=== PATIENT | female | born 1970 | race Two or more races ===

== ENCOUNTER 2024-06-09 09:49 | Outpatient (RCR) | payer MEDICAID, SELFPAY | END 2024-06-30 23:59 | disposition home or self-care (01) | LOC: SCTC 09:49 | PROVIDERS: PCP Physician Assistant Medical; Referring Provider Physician Assistant Medical; Visit Provider Nurse Practitioner Family | DX: D49.0 Neoplasm of unspecified behavior of digestive system (principal); I10 Essential (primary) hypertension; R19.7 Diarrhea, unspecified | CPT/HCPCS: 99212; G0463 ==

== ENCOUNTER 2024-07-24 21:16 | Emergency (ER) | payer MEDICAID, SELFPAY ==
[2024-07-24 21:17] VITALS: BMI 26.4
[2024-07-24 21:30] VITALS: BP 141/86; PULSE 83; RESP 16; TEMP 36.8; O2SAT 99
--- NOTE | 2024-07-24 21:33 | XR_ITS ---
Examination: CT abdomen and pelvis without contrast. Coronal 3-D reconstructions. Sagittal 2-D reconstructions. Date and time of exam:July 24, 1999 2510 0 8:00 PM INDICATIONS: Onset of abdominal pain beginning 2 days ago COMPARISON: January 01, 2022 CTDI: vol (mGy): 7.61 DLP: (mGycm): 408 Technique: Axial images of the abdomen have been obtained, 3 mm slice thickness Intravenous contrast material has not been administered. Low dose protocols were performed. One or more of the following dose reduction techniques were used; automated exposure control, adjustment of the mA and/or KV according to patient size, use of iterative reconstruction technique. Findings: No focal liver or splenic lesions Absent gallbladder No pancreatic or adrenal mass. No renal or ureteral calculi, no hydronephrosis Aorta normal size And absent appendix No bowel obstruction or diverticulitis Contracted urinary bladder with urinary bladder wall thickening Moderate osteopenia IMPRESSION: No renal or ureteral calculi, no hydronephrosis Absent. No bowel obstruction or diverticulitis
--- NOTE | 2024-07-24 21:34 | PD.EDRME ---
Rapid Medical Screening Exam RME Arrival date/time: 07/24/24 21:16 54-year-old female with no known medical history presents to the emergency room with a chief complaint of 8 out of 10 epigastric pain that radiates down to her lower abdominal area x 2 days I have greeted and performed a focused initial assessment of this patient. A comprehensive ED assessment and evaluation of the patient, analysis of all test results, and completion of the medical decision making process will be conducted by additional ED providers. Chief Complaint: Abdominal Pain Vital signs: Vital Signs Temperature 98.2 F 07/24/24 21:30 Pulse Rate 83 07/24/24 21:30 Respiratory Rate 16 07/24/24 21:30 Blood Pressure 141/86 H 07/24/24 21:30 Pulse Oximetry (%) 99 07/24/24 21:30 Oxygen Delivery Method Room Air 07/24/24 21:30 Vital signs reviewed by provider: Yes
[2024-07-24] MEDS: MG HYD/AL HYD/SIME (Maalox Reg) SUSP 30 ML UDC PO (21:39)
[2024-07-24 22:23] LABS: Alanine Aminotransferase 29 U/L (10-49); Albumin, Serum 4.9 gm/dL (3.5-5.0); Albumin/Globulin Ratio 1.6 (1.2-2.2); Alkaline Phosphatase 131 U/L (46-116); Anion Gap 9 (7-16); Aspartate Amino Transferase 30 U/L (0-34); BUN/Creatinine Ratio 13 Ratio (12-20); Bilirubin,Total 0.3 mg/dL (0.3-1.2); Blood Urea Nitrogen 12 mg/dL (9-23); Calcium 10.5 mg/dL (8.3-10.6); Calcium (Corrected) 10.5 mg/dL (8.5-10.1); Carbon Dioxide 27.7 mMol/L (20.0-31.0); Chloride 102 mMol/L (98-107); Creatinine (Component) 0.9 mg/dL (0.6-1.3); Globulin 3.1 gm/dL (2.3-3.5); Glucose 119 mg/dL (74-106); Lipase 36 U/L (12-53); Osmolality,Calculated 278 (275-295); Potassium 3.8 mMol/L (3.4-5.1); Sodium 139 mMol/L (136-145); eGFR > 60 See Note
[2024-07-24 22:25] LABS: Basophils % (Auto) 0 % (0-2.5); Eosinophils # (Auto) 0.1 Thou/mm3 (0.0-0.5); Eosinophils % (Auto) 1 % (0-10); Hematocrit 40.1 % (36.0-46.0); Hemoglobin 14.2 g/dL (12.0-16.0); Immature Granulocytes % (Auto) 0 % (0-0); Immature Granulocytes Auto 0.03 Thou/mm3 (0.00-0.00); Lymphocytes % (Auto) 33 % (10-50); Mean Corpuscular HGB Conc 35.4 g/dl (31.0-37.0); Mean Corpuscular Hemoglobin 32.2 pg (25.0-35.0); Mean Corpuscular Volume 91 fL (80-100); Monocytes # (Auto) 0.5 Thou/mm3 (0.0-0.8); Monocytes % (Auto) 6 % (0-12); Neutrophils # (Auto) 5.5 Thou/mm3 (1.8-7.7); Neutrophils % (Auto) 60 % (37-80); Nucleated Red Blood Cell % 0 /100 WBC (0); Platelet Count 198 Thou/mm3 (140-440); RDW Standard Deviation 45.2 fL (36.4-46.3); Red Blood Count 4.41 Miln/mm3 (4.00-5.20); White Blood Count 9.1 Thou/mm3 (3.6-11.0)
[2024-07-24 23:10] LABS: Collection Type, Urine Clean Catch
[2024-07-24 23:25] LABS: Bilirubin,Urine Negative (Negative); Blood,Urine Negative (Negative); Clarity,Urine Clear (Clear/Hazy); Color,Urine Colorless (Lt Yel-Yel); Glucose, Urine Negative (Negative); Ketones,Urine Negative (Negative); Leukocyte Esterase,Urine Positive (Negative); Nitrite,Urine Negative (Negative); PH,Urine 6.5 (5.0-7.0); Protein,Urine Negative (Neg - Trace); RBC,Urine 1 /hpf (0-3); Squamous Epithelial Cell,Urine 4 /hpf (0-5); Urobilinogen,Urine Negative mg/dL (0.0-1.0); WBC,Urine 5 /hpf (0-5)
--- NOTE | 2024-07-25 00:14 | PD.EDABDPN ---
ED Abdominal Pain RME/HPI General Chief Complaint: Abdominal Pain Stated complaint: abdominal pain x 1 day, epigastric Time seen by provider: 07/25/24 00:11 Arrival date/time: 07/24/24 21:16 54-year-old female with no known medical history presents to the emergency room with a chief complaint of 8 out of 10 epigastric pain that radiates down to her lower abdominal area x 2 days Source: patient Mode of arrival: ambulatory Limitations: no limitations RME / HPI RME / HPI narrative: 07/24/24 21:16 54-year-old female with no known medical history presents to the emergency room with a chief complaint of 8 out of 10 epigastric pain that radiates down to her lower abdominal area x 2 days I have greeted and performed a focused initial assessment of this patient. A comprehensive ED assessment and evaluation of the patient, analysis of all test results, and completion of the medical decision making process will be conducted by additional ED providers. Related Data Previous Rx's ?Medication ?Instructions ?Recorded docusate sodium 100 mg capsule 100 mg PO BID #40 caps 01/02/22 (Colace) hydrocodone 5 mg-acetaminophen 325 1 tab PO Q6H PRN pain (scale score 01/02/22 mg tablet 7-10) #20 tabs ibuprofen 600 mg tablet 600 mg PO Q8H PRN pain (scale 01/02/22 score 4-6) #15 tabs furosemide 20 mg tablet (Lasix) 20 mg PO QAM #3 tabs 02/17/23 meclizine 25 mg tablet 25 mg PO QDAY PRN dizziness #10 02/17/23 tabs potassium chloride 20 mEq 20 meq PO QDAY #6 tabs 02/17/23 tablet,extended release omeprazole 20 mg capsule,delayed 20 mg PO QDAY #14 caps 07/25/24 release Allergies Allergy/AdvReac Type Severity Reaction Status Date / Time No Known Allergies Allergy Verified 12/06/23 18:05 Review of Systems Review of Systems Systems Reviewed: All systems reviewed, normal except as documented Constitutional Constitutional: Reports system reviewed and no additional complaints, except as documented, Denies fatigue, Denies fever(s), Denies headache(s) and Denies weakness Eyes Eyes: Reports system reviewed and no additional complaints, except as documented, Denies blurry vision and Denies change in vision ENT Ears, Nose, Mouth, and Throat: Reports system reviewed and no additional complaints, except as documented, Denies otalgia, Denies headache(s), Denies nasal congestion, Denies throat swelling and Denies vertigo Cardiovascular Cardiovascular: Reports system reviewed and no additional complaints, except as documented, Denies chest pain, Denies dyspnea and Denies dyspnea on exertion Respiratory Respiratory: Reports system reviewed and no additional complaints, except as documented, Denies chest congestion, Denies cough, Denies dyspnea, Denies dyspnea on exertion and Denies wheezing Gastrointestinal Gastrointestinal: Reports system reviewed and no additional complaints, except as documented, Reports abdominal pain, Reports cramping, Reports dyspepsia, Reports early satiety, Reports excessive flatus, Reports heartburn, Reports nausea and Denies vomiting Genitourinary Genitourinary: Reports system reviewed and no additional complaints, except as documented Musculoskeletal Musculoskeletal: Reports system reviewed and no additional complaints, except as documented and Denies back pain Integumentary/Breasts Skin/Breast: Reports system reviewed and no additional complaints, except as documented and Denies wounds Neurologic Neurologic: Reports system reviewed and no additional complaints, except as documented, Denies confusion, Denies headache(s), Denies lack of coordination, Denies vertigo and Denies weakness Psychiatric Psychiatric: Reports system reviewed and no additional complaints, except as documented, Denies anxiety, Denies confusion, Denies depression, Denies paranoia, Denies suicidal ideation and Denies tactile hallucinations Endocrine Endocrine: Reports system reviewed and no additional complaints, except as documented and Denies fatigue Hematologic/Lymphatic Hematologic/Lymphatic: Reports system reviewed and no additional complaints, except as documented and Denies lymphadenopathy Allergic/Immunologic Allergic/Immunologic: Reports system reviewed and no additional complaints, except as documented, Denies throat swelling, Denies urticaria and Denies wheezing Past Medical History Past Medical History NEUROLOGIC: Negative Neurological Disorders, Cerebrovascular Accident, Transient Ischemic Attacks (TIA), Dementia, Alzheimer's Disease, Parkinson's Disease, Brain Tumor, Meningitis, Seizures, Epilepsy, Multiple Sclerosis, Cerebral Palsy, Amyotrophic Lateral Sclerosis (ALS/Ronda Gehrig's), Guillain-Burgess Syndrome, Spina Bifida, Paralysis, Peripheral Neuropathy, Galdamez's Palsy, Subdural Hematoma, Migraine, Head Trauma, Spinal Cord Injury or Traumatic Brain Injury CARDIAC: Negative Cardiac Disorders, Myocardial Infarction, Cardiac Arrhythmia, Atrial Fibrillation, Angina, Heart Murmur, Coronary Artery Disease, Atherosclerotic Heart Disease, Peripheral Vascular Disease, Hypercholesterolemia, Aneurysm, Congestive Heart Failure, Congenital Heart Disease, Valvular Heart Disease, Rheumatic Fever, Cardiomyopathy, Edema, Pericarditis, Cellulitis, Deep Vein Thrombosis, Hypertension, Hypotension or Varicose Veins RESPIRATORY: Negative Chronic Obstructive Pulmonary Disease (COPD), Asthma, Bronchitis, Emphysema, Pneumonia, Pulmonary Fibrosis, Cystic Fibrosis, Tuberculosis, Pulmonary Embolism, Pulmonary Edema or Sleep Apnea GASTROINTESTINAL: Positive Gastrointestinal Disorders and Gall Bladder Disease (CHOLECYSTECTOMY 2001, GALLSTONE PANCREATITIS 2018.); Negative Hepatitis, Cirrhosis, Pancreatitis, Celiac Disease, Gastrointestinal Bleed, Esophageal Varices, Shafer's Esophagus, Colitis, Ulcerative Colitis, Diverticulitis, Diverticulosis, Ulcer, Colorectal Cancer, Irritable Bowel, Crohn's Disease, Obstructive Bowel, Hiatal Hernia, Hemorrhoids, Gastroesophageal Reflux Disease or Obesity GENITOURINARY: Negative Genitourinary Disorders, Renal Disease, Kidney Stones, Polycystic Kidney Disease, Neurogenic Bladder, Inguinal Hernia or Dialysis REPRODUCTIVE: Positive Previous Pregnancies ( X5); Negative Breast Cancer, Endometriosis, Genital Herpes, Gonorrhea, Pelvic Inflammatory Disease, Syphilis or Uterine Prolapse MUSCULOSKELETAL: Negative Musculoskeletal Disorders, Muscular Dystrophy, Myasthenia Gravis, Marfan's Syndrome, Bone Cancer, Arthritis, Rheumatoid Arthritis, Osteoporosis, Degenerative Disk Disease, Gout, Scoliosis, Carpal Tunnel Syndrome, Fibromyalgia, Fractures, Degenerative Joint Disease, Osteomyelitis or Poliovirus ENT: Negative Cataracts, Glaucoma, Blind, Retinal Detachment, Macular Degeneration, Ear Infection, Deafness, Head Trauma or Eye Prosthesis ENDOCRINE: Negative Endocrine Disorders, Diabetes Mellitus Type 1, Diabetes Mellitus Type 2, Hypoglycemia, Mitchel's Syndrome, Schleswig's Disease, Hyperthyroidism, Hypothyroidism, Parathyroid Disease, Pituitary Disease, Systemic Lupus Erythematosus, Syndrome of Inappropriate Antidiuretic Hormone (SIADH), Adrenal Disease or Graves' Disease HEMATOLOGIC: Negative Blood Disorders, Anemia, Leukemia, Hemophilia, Thalassemia, Sickle Cell Disease or Clotting Problems PSYCHO/SOCIAL: Negative Psychiatric Problems, Schizophrenia, Recreational Drug Use, Bipolar Disorder, Depression, Anxiety, Behavior Problems, Self-Mutilation, Attention Deficit Disorder, Attention Deficit Hyperactivity Disorder, Depression, Post Traumatic Stress Disorder or Eating Disorder OTHER HISTORY: Positive Hospitalization (2001,2019); Negative Autoimmune Disease, Down Syndrome, Autism, Developmental Delay, Shingles, Falls, Blood Transfusions, Blood Transfusion Reaction, Anesthesia Reactions, Organ Transplant, Chemotherapy, Radiation Therapy, Hyperbaric Therapy, MRSA, VRSA, Vancomycin-Resistant Enterococci, Human Immunodeficiency Virus (HIV), Chicken Pox, Measles, Mumps, Rubella (Ukrainian Measles), Pertussis, Clostridium Difficile, Cancer, Breast Cancer, Cervical Cancer, Colorectal Cancer, Lung Cancer or Ovarian Cancer Family History FAMILY HISTORY: Negative Family Psychiatric Problems, Family Respiratory Disorders, Family Cardiac Disorders, Family Gastrointestinal Problems, Family Cancer, Family Surgery or Family Anesthesia Reaction Surgical History SURGICAL: Positive Abdominal Surgery and Section (X5); Negative Cardiac Surgery, Open Heart Surgery, Coronary Artery Bypass Graft, Valve Replacement, Vascular Surgery, Coronary Stent, Cardiac Catheterization, Pacemaker, Angiogram, Auto Implanted Cardiovert Defib, Carotid Endarterectomy, Endocrine Surgery, Thyroidectomy, Ear Surgery, Tympanostomy Tube, Eye Surgery, Nose Surgery, Oral Surgery, Tonsillectomy, Adenoidectomy, Cochlear Implant, Corneal Transplant, Throat Surgery, Tracheostomy, Gastric Bypass Surgery, Gastrostomy, Bowel Surgery, Joint Replacement, Amputation, Open Reduction Internal Fixation, Arthroscopy, Neurologic Surgery, Brain Shunt, Mastectomy, Lumpectomy, Hysterectomy, Tubal Ligation or Organ Transplant Social History SMOKING STATUS: Never smoker SUBSTANCE USE: does not use ED Exam General Limitations: Present no limitations General appearance: Present alert and in no apparent distress Head Head exam: Present atraumatic Eye Eye exam: Present normal appearance, PERRL and EOMI ENT ENT exam: Present normal exam, normal oropharynx and mucous membranes moist Neck Neck exam: Present normal inspection, full ROM and trachea midline Chest Chest inspection: Present normal inspection and symmetric chest wall rise Respiratory Respiratory exam: Present normal lung sounds bilaterally Cardiovascular Cardiovascular exam: Present regular rate, normal rhythm and normal heart sounds Abdominal Exam Abdominal exam: Present soft, tenderness and normal bowel sounds Abdominal tenderness: Present epigastrium and moderate; Absent RLQ or LLQ Extremities Exam Extremities exam: Present normal inspection and full ROM Back Exam Back exam: Present normal inspection and full ROM Neurological Exam Neurological exam: Present alert, oriented X3 and CN II-XII intact Psychiatric Psychiatric exam: Present normal affect and normal mood Skin Skin exam: Present warm, dry, intact and normal color Course Quality Measures none Orders Category Date Time Status CT abdomen pelvis wo con Stat Exams 07/24/24 21:33 Completed CBC Stat Lab 07/24/24 21:47 Completed CMP [Comprehensive Metabolic Panel] Stat Lab 07/24/24 21:47 Completed Lipase Stat Lab 07/24/24 21:47 Completed UA [Urinalysis] Stat Lab 07/24/24 23:04 Completed Urine Culture Stat Lab 07/24/24 23:04 Received mg Hyd/Al Hyd/Beth Susp [Maalox Susp] Med 07/24/24 21:33 Discontinued 30 ml PO X1 ONE Vital Signs Vital signs: Vital Signs Temperature 98.2 F 07/24/24 21:30 Pulse Rate 83 07/24/24 21:30 Respiratory Rate 16 07/24/24 21:30 Blood Pressure 141/86 H 07/24/24 21:30 Pulse Oximetry (%) 99 07/24/24 21:30 Oxygen Delivery Method Room Air 07/24/24 21:30 O2 saturation 99% within normal limits Abdominal Pain MDM MDM Narrative MDM Narrative:: 54-year-old female with no known medical history presents to the emergency room with a chief complaint of 8 out of 10 epigastric pain that radiates down to her lower abdominal area x 2 days. The patient is hemodynamically stable and nontoxic-appearing CT abdomen and pelvis was completed and was negative for any acute findings, CBC CMP UA were all negative for any acute findings. Patient has no gallbladder and no appendix. Patient was reevaluated and states she has significant improvement in her pain with Maalox Patient was discharged and educated to follow-up with primary care provider and return to the emergency room for any evidence of worsening signs or symptoms Patient data External records reviewed:: [facility] previous records Clinical information provided by:: patient Social determinants that could affect healthcare access:: none Patient has the following chronic illnesses:: No chronic illness How is presenting disease/condition affected by chronic disease/condition?: no chronic disease Evaluation data The following diagnostics were reviewed and interpreted by me:: lab results and radiology exam(s) Lab and/or radiology exams considered but not ordered:: Labs and radiology exams considered and ordered Interpretation Summary: CT abdomen and pelvis-Findings: No focal liver or splenic lesions Absent gallbladder No pancreatic or adrenal mass. No renal or ureteral calculi, no hydronephrosis Aorta normal size And absent appendix No bowel obstruction or diverticulitis Contracted urinary bladder with urinary bladder wall thickening Moderate osteopenia IMPRESSION: No renal or ureteral calculi, no hydronephrosis Absent. No bowel obstruction or diverticulitis Medications / Prescriptions Medications or Prescriptions considered but not ordered:: Medication given Medication administrations:: Medication Administration History Discontinued Medications Al Hydrox/Mg Hydrox/Simethicone (Mg Hyd/Al Hyd/Beth (Maalox Reg) Susp 30 Ml Udc) 30 ml PO X1 ONE Stop: 07/24/24 21:34 Last Admin: 07/24/24 21:39 Dose: 30 ml Documented By: CVL Medication given Consultations Consultation(s) initiated? (list below): No Diagnosis Differential diagnosis abdominal pain: abdominal pain, diverticulitis, gastroenteritis and other (Gastritis) Most likely diagnosis given after review of the tests above:: Gastritis Admission Indicated Admission indicated?: not indicated Admission Request Was there a request for admission?: No Disposition Plan Disposition Plan: Discharge Discharge Attestation Discharge Attestation: The patient and all family members were given an opportunity to ask questions and understood the discharge instructions. Discharge instructions specifically effects, indications for sooner follow up or return to the emergency department, and the expected course of current diagnosis. Patient condition: Stable Discharge Plan Plan Patient Disposition: HOME (Self Care) Disposition Comment: Stable Prescriptions/Referrals Prescriptions/Med Rec: New omeprazole 20 mg capsule,delayed release(DR/EC) 20 mg PO QDAY Qty: 14 0RF No Action hydrocodone-acetaminophen 5-325 mg tablet 1 tab PO Q6H MDD 4 PRN (Reason: pain (scale score 7-10)) Qty: 20 0RF docusate sodium [Colace] 100 mg capsule 100 mg PO BID Qty: 40 0RF ibuprofen 600 mg tablet 600 mg PO Q8H PRN (Reason: pain (scale score 4-6)) Qty: 15 0RF meclizine 25 mg tablet 25 mg PO QDAY PRN (Reason: dizziness) Qty: 10 0RF potassium chloride 20 mEq tablet extended release 20 meq PO QDAY Qty: 6 0RF furosemide [Lasix] 20 mg tablet 20 mg PO QAM Qty: 3 0RF Referrals: Tuyet Trinidad PA-C [Primary Care Provider] - In 1 week Problem List Clinical Impression: Gastritis Patient/Caregiver Discharge Instructions Education Materials: Treating Gastritis, Understanding Gastritis, ED Gastritis (Adult) Additional Instructions: Shawn un seguimiento con gordillo proveedor de atenci?n primaria en las pr?ximas 24 a 48 horas. Se complet? la tomograf?a computarizada de gordillo abdomen y pelvis y fue negativa para cualquier hallazgo deepak. Gordillo an?lisis de macie y an?lisis de orina fueron negativos para cualquier hallazgo deepak. Si hay evidencia de signos o s?ntomas que empeoran, regrese a la martínez de emergencias de inmediato. Print Language: Greenlandic Stand Alone Forms: Cheryl Award Info., Patient Portal Info Letter PA/EMPLOYMENT AND CLAIMS AIDE Supervising Physician PA/EMPLOYMENT AND CLAIMS AIDE Supervising Physician: Dr. Brooks
[2024-07-25 00:15] VITALS: BP 128/76; PULSE 80; RESP 18; TEMP 36.7; O2SAT 98
== END 2024-07-25 00:16 | disposition home or self-care (01) ==
PROVIDERS: Nurse Practitioner Family; Emergency Provider Emergency Medicine; PCP Physician Assistant Medical
DX: K29.70 Gastritis, unspecified, without bleeding (principal)
CPT/HCPCS: 36415; 74176; 80053; 81001; 83690; 85025; 87086; 99284; A9270

== ENCOUNTER 2024-12-24 07:45 | Outpatient (RCR) | payer MEDICAID, SELFPAY ==
--- NOTE | 2024-12-24 08:09 | PTNOTE_ITS ---
PT OP Initial Eval Patient Information Outpatient Physical Therapy Treatment Date: 12/24/24 Visit Reasons: Left rotator cuff repair Medical Diagnosis: Z98.890 Treatment Dx #1: Dec L shoulder ROM Treatment Dx #2: L shoulder pain Start of Care: 12/24/24 Date of Onset: 09/30/24 Smoking Status Smoking Status: Never smoker Initial Assessment Subjective: Pt is 54 yr old mohawk speaking female s/p L RCR and SAD reports tightness and difficulty reaching up. Pt reports pain worse at night that limits HH chores and lifting things. PMH: HTN, high cholesterol Pt goal: to reach up without pain Objective: L shoulder ArOM: PROM: FF: 65 deg 74 deg with pain Abd: 50 deg 60 deg with pain ER: 20 deg HBB: L iliac crest Strength: NT but estimated to be 3-/5 in all planes Assessment: Pt presents with very limited ROM of L shoulder consistent with adhesive capsulitis s/p L RCR. Pt requires skilled therapy to meet goals and has poor/fair rehab potential. Pt may benefit from KOURTNEY of L shoulder and static progressive ROM device. Short Term and Sales Promotion Officer Goals 1. Ind with HEP ? 2. Improved AROM of L shoulder to at least 135 deg FF, 125 deg abduction and 80 deg ? ER ? 3. Improved HBB ROM to L3 ? 4. Pt will reach OH x10 with <=4/10 pain Treatment Plan ? 1. Manual therapy ? 2. Therex ? 3. Modalities as indicated, moist heat, ice, estim Frequency and Duration: 2x a week for 18 visits plus the evaluation. We will need more auth after 12 Certification Dates: 12/24/24 to 03/24/25 Procedure Charges OP PT Eval Mod Complex 30 minutes: Yes
== END 2024-12-28 23:59 | disposition home or self-care (01) ==
LOC: CPTX 07:45
PROVIDERS: PCP Physician Assistant Medical; Referring Provider Orthopaedic Surgery; Visit Provider Orthopaedic Surgery
DX: M25.512 Pain in left shoulder (principal); Z98.890 Other specified postprocedural states; I10 Essential (primary) hypertension
CPT/HCPCS: 97162

== ENCOUNTER 2025-01-28 15:30 | Outpatient (RCR) | payer MEDICAID, SELFPAY ==
--- NOTE | 2024-12-31 12:41 | PT.ODAYNRPT ---
PT Outpatient Daily Note OP Daily Note Outpatient Physical Therapy Treatment Date: 12/31/24 Visit Reasons: Left rotator cuff repair Subjective: Doing HEP with soreness Objective: See F/S for therex Assessment: Improved ROM with AAROM into FF to about 130 deg and abduction but ER is very limited Plan: Improve L shoulder ROM Length of Time (minutes) of Treatment: 30 Minutes Procedure Charges Therapeutic Exercise 30 minutes: Yes
--- NOTE | 2025-01-05 08:13 | PT.ODAYNRPT ---
PT Outpatient Daily Note OP Daily Note Outpatient Physical Therapy Treatment Date: 01/05/25 Visit Reasons: Left rotator cuff repair Subjective: Doing HEP with soreness Objective: See F/S for therex Assessment: Improved ROM with AAROM into FF to about 130 deg and abduction to 95 deg and ER is limited to about 55 deg Plan: Improve L shoulder ROM Length of Time (minutes) of Treatment: 30 Minutes Procedure Charges Therapeutic Exercise 30 minutes: Yes
--- NOTE | 2025-01-14 17:15 | PT.ODAYNRPT ---
PT Outpatient Daily Note OP Daily Note Outpatient Physical Therapy Treatment Date: 01/14/25 Visit Reasons: Left rotator cuff repair Subjective: Has a shoulder lala and exercise ball and doing HEP with soreness. Objective: See F/S for therex MT: FF, abd ER x5' with overpressure Assessment: Improved ROM with AAROM into FF to about 130 deg and abduction to 95 deg and ER is limited to about 55 deg. Pain and capsular tightness limits PROM with MT. Plan: Improve L shoulder ROM Length of Time (minutes) of Treatment: 30 Minutes Procedure Charges Therapeutic Exercise 30 minutes: Yes
--- NOTE | 2025-01-18 15:42 | PT.ODAYNRPT ---
PT Outpatient Daily Note OP Daily Note Outpatient Physical Therapy Treatment Date: 01/18/25 Visit Reasons: Left rotator cuff repair Subjective: Pt reports shoulder is still stiff and painful. Objective: Please see flow sheet for ther ex list. Assessment: High focus on restoring ROM, pt encouraged to continue with HEP. Plan: Continue with pOC. Length of Time (minutes) of Treatment: 30 Minutes Procedure Charges Therapeutic Exercise 30 minutes: Yes
--- NOTE | 2025-01-22 16:09 | PT.ODAYNRPT ---
PT Outpatient Daily Note OP Daily Note Outpatient Physical Therapy Treatment Date: 01/22/25 Visit Reasons: Left rotator cuff repair Subjective: Pt reports L shoulder continues to be painful and stiff. Objective: Please see flow sheet for ther ex list. Assessment: Pt instructed on AAROM exercises, performed within tolerable range. Plan: Continue with pOC. Length of Time (minutes) of Treatment: 30 Minutes Procedure Charges Therapeutic Exercise 30 minutes: Yes
--- NOTE | 2025-01-28 16:30 | PT.ODAYNRPT ---
PT Outpatient Daily Note OP Daily Note Outpatient Physical Therapy Treatment Date: 01/28/25 Visit Reasons: Left rotator cuff repair Subjective: Pt reports shoulder continues to be really painful and is doing her best at home to perform HEP to maximize rehab potential. Pt also complaints of pain in bicep region down to th L hand. Objective: Please see flow sheet for ther ex list. Assessment: Pt presents in clinic with c/o high shoulder pain, pt rests her L arm on her abdomen with elbow flexed in guarded position. Pt educated on allwing L arm to dangle at side and work on arm swing to work on normalinzing movement on L UE, pt agreed. Perfomed PROM of L shoulder, ROM limited due to pain response. Plan: Continue with POC. Length of Time (minutes) of Treatment: 30 Minutes Procedure Charges Therapeutic Exercise 30 minutes: Yes
== END 2025-01-28 23:59 | disposition home or self-care (01) ==
LOC: CPTX 15:30
PROVIDERS: PCP Orthopaedic Surgery; Referring Provider Orthopaedic Surgery; Visit Provider Orthopaedic Surgery
DX: M25.512 Pain in left shoulder (principal); I10 Essential (primary) hypertension; Z98.890 Other specified postprocedural states
CPT/HCPCS: 97110

== ENCOUNTER 2025-02-18 09:00 | Outpatient (RCR) | payer MEDICAID, SELFPAY ==
--- NOTE | 2025-02-02 16:27 | PT.ODAYNRPT ---
PT Outpatient Daily Note OP Daily Note Outpatient Physical Therapy Treatment Date: 02/02/25 Visit Reasons: Left rotator cuff Subjective: Pt reports L shoulder continues to be painful and has difficulty with reaching over head. Objective: Please see flow sheet for ther ex list. Assessment: Pt continues to report high pain with light PROM and AAROM activities. Plan: Continue with poC. Length of Time (minutes) of Treatment: 30 Minutes Procedure Charges Therapeutic Exercise 30 minutes: Yes
--- NOTE | 2025-02-04 16:05 | PT.ODS1RPT ---
PT OP Progress/Discharge Note Date of Service: 02/04/25 Progress Note/DC Note Progress Note/Discharge Note: Progress Note Patient Information Visit Reasons: Left rotator cuff Service Continue Service or Discharge: Continue Service Status Subjective: Has a shoulder lala and exercise ball and doing HEP with soreness. Objective: L shoulder AROM: FF: 90 deg Abd: 70 deg ER: 60 deg HBB: L5 with pain Assessment: Pt has attended 02/09 Rx sessions with slow progress with goals due to capsular tightness and pain consistent with adhesive capsulitis. Pt may benefit from KOURTNEY and continued therapy to improve ROM. Plan: Continue per POC Procedure Charges Therapeutic Exercise 30 minutes: Yes
--- NOTE | 2025-02-09 11:36 | PT.ODAYNRPT ---
PT Outpatient Daily Note OP Daily Note Outpatient Physical Therapy Treatment Date: 02/09/25 Visit Reasons: Left rotator cuff Subjective: Has a shoulder lala and exercise ball and doing HEP with soreness. Objective: See F/S for therex MT: FF, abd ER x5' with overpressure Assessment: Improved ROM with AAROM into FF to about 130 deg and abduction to 95 deg and ER is limited to about 55 deg. Pain and capsular tightness limits PROM with MT. Plan: Improve L shoulder ROM Length of Time (minutes) of Treatment: 30 Minutes Procedure Charges Therapeutic Exercise 30 minutes: Yes
--- NOTE | 2025-02-11 16:08 | PT.ODAYNRPT ---
PT Outpatient Daily Note OP Daily Note Outpatient Physical Therapy Treatment Date: 02/11/25 Visit Reasons: Left rotator cuff Subjective: Better ROM lately of L shoulder Objective: See F/S for therex Assessment: Improved ROM with AAROM into FF to about 130 deg and abduction to 105 deg and ER is limited to about 55 deg. Pain and capsular tightness limits PROM with MT. Plan: Improve L shoulder ROM Length of Time (minutes) of Treatment: 30 Minutes Procedure Charges Therapeutic Exercise 30 minutes: Yes
--- NOTE | 2025-02-15 09:21 | PT.ODAYNRPT ---
PT Outpatient Daily Note OP Daily Note Outpatient Physical Therapy Treatment Date: 02/15/25 Visit Reasons: Left rotator cuff Subjective: Better ROM lately of L shoulder Objective: See F/S for therex Assessment: Improved ROM with AAROM into FF to about 130 deg and abduction to 105 deg and ER is limited to about 55 deg. Pain and capsular tightness limits PROM with MT. Plan: Reassess Length of Time (minutes) of Treatment: 30 Minutes Procedure Charges Therapeutic Exercise 30 minutes: Yes
--- NOTE | 2025-02-18 09:03 | PT.ODS1RPT ---
PT OP Progress/Discharge Note Date of Service: 02/18/25 Progress Note/DC Note Progress Note/Discharge Note: DC Note Patient Information Visit Reasons: Left rotator cuff Service Continue Service or Discharge: Discharge Status Subjective: Has a shoulder lala and exercise ball and doing HEP with soreness. 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 Objective: L shoulder AROM: FF: 77 deg Abd: 67 deg ER: 65 deg HBB: L5 with pain Strength: 3-/5 in all planes Assessment: Pt has attended 12/12 Rx sessions with slow progress with goals due to capsular tightness and pain. Compared to the last progress note she has less AROM in all planes of motion, not sure if that is due to pain or her not pushing into the pain. Either way she hasn't met therapy goals and progress plateaued and then worsened. Plan: D/C with HEP Procedure Charges Therapeutic Exercise 30 minutes: Yes
== END 2025-02-28 23:59 | disposition home or self-care (01) ==
LOC: CPTX 09:00
PROVIDERS: PCP Orthopaedic Surgery; Referring Provider Orthopaedic Surgery; Visit Provider Orthopaedic Surgery
DX: M25.512 Pain in left shoulder (principal); M62.412 Contracture of muscle, left shoulder; I10 Essential (primary) hypertension; Z98.890 Other specified postprocedural states
CPT/HCPCS: 97110

== ENCOUNTER 2025-02-25 11:25 | Outpatient (RCR) | payer MEDICAID, SELFPAY | END 2025-02-28 23:59 | disposition home or self-care (01) | LOC: SCTC 11:25 | PROVIDERS: PCP Physician Assistant Medical; Referring Provider Physician Assistant Medical; Visit Provider Nurse Practitioner Family | DX: D49.0 Neoplasm of unspecified behavior of digestive system (principal) | CPT/HCPCS: 99212; G0463 ==